=== PATIENT | male | born 1950 | race Hispanic/Latino ===

== ENCOUNTER 2017-02-06 06:35 | Day surgery (SDC) | payer MEDICARE, BC ==
[2015-03-31 06:34] VITALS: BMI 32.7
[2017-02-06] MEDS ORDERED: Bupivacaine 0.5% Inj(30mL) ONE (07:31)
[2017-02-06] MEDS ORDERED: Liquid Adhesive TOP ONE (07:31)
[2017-02-06] MEDS ORDERED: Neostigmine Methylsulfate 3mg/3ml Syringe IV ONE (07:32)
[2017-02-06] MEDS ORDERED: Propofol 10 mg/ml Inj (20 ML) ONE (07:32)
[2017-02-06] MEDS ORDERED: Rocuronium 10 mg/ml (5 ml) ONE (07:33)
[2017-02-06] MEDS ORDERED: Succinylcholine 200 mg/10 ml Inj IV ONE (07:33)
--- NOTE | 2017-02-06 08:48 | RAD ---
HISTORY: PRE-OP COMPARISON: No prior. FINDINGS: LUNGS: No active pulmonary disease. PLEURA: No significant pleural effusion identified, no pneumothorax apparent. CARDIOVASCULAR: Normal. OSSEOUS STRUCTURES: No significant abnormalities. VISUALIZED UPPER ABDOMEN: Normal. OTHER FINDINGS: None. IMPRESSION: No acute cardiopulmonary disease appreciated.
[2017-02-06] MEDS ORDERED: HYDROmorphone 0.5 mg/0.5 ml ISec IVP PRN (09:08)
--- NOTE | 2017-02-06 09:09 | PCM.SURG1 ---
Surgeon's Initial Post Op Note - Surgeon's Notes Surgeon: Martin Condemnation Engineer: Mayo PGY3; Ann Marie PGY1 Type of Anesthesia: General Endo Pre-Operative Diagnosis: Incarcerated Umbillica Hernia Operative Findings: Incarcerated umbilical hernia Post-Operative Diagnosis: Incarcerated Umbilical Hernia Operation Performed: Laparoscopic umbilical hernia repair with mesh Specimen/Specimens Removed: none Estimated Blood Loss: EBL {In ML}: 2 Blood Products Given: N/A Drains Used: No Drains Post-Op Condition: Good Date of Surgery/Procedure: 02/06/17 Time of Surgery/Procedure: 09:11
[2017-02-06] MEDS ORDERED: Levalbuterol 1.25 MG/3 ML Inhal Soln UD IH PRN (09:10)
[2017-02-06] MEDS ORDERED: Lactated Ringer's 1,000 ML IV SCH (09:15)
--- NOTE | 2017-02-06 11:14 | RAD ---
HISTORY: SOB COMPARISON: Portable chest 02/06/2017 7:06 a.m.. FINDINGS: LUNGS: Limited patchy density is question at the right costophrenic sulcus probably reflective of atelectasis of the pattern is nonspecific. No left sided airspace disease identified. PLEURA: No significant pleural effusion identified, no pneumothorax apparent. CARDIOVASCULAR: Normal. OSSEOUS STRUCTURES: No significant abnormalities. VISUALIZED UPPER ABDOMEN: Normal. OTHER FINDINGS: None. IMPRESSION: Trace airspace disease question on the right costophrenic sulcus with none on the left chest. Exam otherwise unremarkable.
--- NOTE | 2017-02-06 12:52 | OP ---
PROCEDURE DATE: 02/06/2017 PREOPERATIVE DIAGNOSIS: Incarcerated umbilical hernia. POSTOPERATIVE DIAGNOSIS: Incarcerated umbilical hernia. PROCEDURE PERFORMED: Laparoscopic repair of the incarcerated umbilical hernia with mesh. SURGEON: Braden Salazar MD ACTIVITY LEADER: Dr. Huber. TYPE OF ANESTHESIA: General endotracheal anesthesia. ANESTHESIA ADMINISTERED BY: Master Ramirez MD ESTIMATED BLOOD LOSS: Minimal. SPECIMEN: None. INDICATIONS: The patient is a 66-year-old male with history of umbilical hernia, which has been increasing in size causing him this pain and discomfort and it was incarcerated. The patient was examined and was noted to have a hernia. The patient was also noted to have liver cirrhosis and has multiple cardiac issues including hypertension and coronary artery disease. The patient received preoperative clearance from both medical and cardiac standpoint of view and was scheduled for the repair. DESCRIPTION OF PROCEDURE: The patient was brought to the operating room and placed on the operating table in a supine position. The patient was connected to the EKG, blood pressure, and pulse oximetry monitor. The patient then underwent general endotracheal anesthesia and was prepped and draped in the usual sterile fashion. First, a standard time-out procedure took place and everybody in the room agreed as to the patient's identity, diagnosis, and procedure to be performed. A surgical plan for this surgery and itself and postoperative course were also explained. First using lidocaine with Marcaine, the left subcostal margin area and midclavicular line was infiltrated and under direct visualization for the Visiport, access to the abdominal cavity was obtained. Once a 10-mm port was in place, the pneumoperitoneum was obtained and careful evaluation of abdominal cavity revealed the presence of some adhesions of the omentum to the left lower quadrant, abdominal wall as well as the area of the right lower quadrant. Both of these adhesions were highly vascularized as well as falciform ligament, which was highly vascularized, this is all probably secondary to the portal hypertension. The liver itself appeared to be cirrhotic and very uneven surface. I then proceeded with evaluation of the hernia, which appeared to contain omentum within it. Careful gentle teasing of the omentum pulled it out from the hernia and reduced it. Then, carefully detached to electrocautery and once this was done and no bleeding was noted, we then proceeded with hernia repair. A Veress needle was inserted into the abdominal cavity through the hernia defect. A 9-mm Parietex mesh incurred on a 3-0 Vicryl tie was placed into the abdominal cavity through the 10-mm port. This was pulled with closure needle into the defect by the attached string and the mesh itself was positioned centrally over the defect. Defect itself was about 2 cm and the mesh was 9 cm giving us about 3.5 to 4 cm of the margin. Now, the tackers were used in order to attach the mesh to the anterior abdominal wall, pushed 2 rows, one at the edge of the mesh and one at the midportion of the mesh. Once this was done, there was excellent hemostasis and there was no blood visible from the tackers in the abdominal wall. The pneumoperitoneum was now released after trocars were inspected and there was no bleeding noted. Once pneumoperitoneum was released, trocars were removed and the subcostal defect was closed using 0 Vicryl. The remaining wounds were now closed using 3-0 Vicryl and 4-0 Monocryl. Sterile Dermabond dressing was applied to all wounds. The patient tolerated the procedure well and there were no complications. The patient was awakened and transferred to the recovery room for further observation. Braden Salazar MD
[2017-02-06] MEDS ORDERED: Oxycodone/Acetaminophen 5/325 mg Tab PO PRN (12:56)
[2017-02-06 14:39] VITALS: BP 135/63; PULSE 83; RESP 18; TEMP 98.7; O2SAT 93
== END 2017-02-06 14:40 | disposition home or self-care (01) ==
LOC: SDS 06:35
PROVIDERS: ATTEND General Practice
DX: K42.0 Umbilical hernia with obstruction, without gangrene (principal); K74.60 Unspecified cirrhosis of liver; I10 Essential (primary) hypertension; I25.10 Atherosclerotic heart disease of native coronary artery without angina pectoris; E66.9 Obesity, unspecified; K76.6 Portal hypertension
CPT/HCPCS: 49653; 71010; C1781; J0330; J0690; J1170; J1885; J2001; J2405; J2704; J2710; J3010; J7120 ×2

== ENCOUNTER 2017-04-12 06:08 | Day surgery (SDC) | payer MEDICARE, BC ==
[2017-04-10 10:20] VITALS: BMI 34.0
[2017-04-12 07:11] LABS: BASO # 0.04 K/mm3 (0.0-2.0); BASO % 0.9 % (0.0-3.0); EOS # 0.3 (0.0-0.7); EOS % 6.3 % (1.5-5.0); GRAN # 2.82 (1.4-6.5); GRAN % 61.5 % (50.0-68.0); HEMOGLOBIN 11.6 g/dL (14.0-18.0); LYMPH # 0.9 (1.2-3.4); MEAN CELL VOLUME 90.4 fl (80.0-105.0); MEAN CORPUSCULAR HEMOGLOBIN 29.3 pg (25.0-35.0); MEAN CORPUSCULAR HGB CONC 32.4 g/dl (31.0-37.0); MEAN PLATELET VOLUME 10.9 fl (7.0-11.0); MONO # 0.5 (0.1-0.6); MONO % 11.3 % (1.0-6.0); RBC 3.96 10^6/uL (3.5-6.1); RED CELL DISTRIBUTION WIDTH 13.7 % (11.5-14.5); WHITE BLOOD COUNT 4.6 10^3/ul (4.5-11.0)
[2017-04-12 07:13] LABS: INR 1.25 (0.93-1.08); PARTIAL THROMBOPLASTIN TIME 34.2 Seconds (25.1-36.5); PROTHROMBIN TIME 14.4 SECONDS (9.4-12.5)
[2017-04-12] MEDS ORDERED: Lidocaine 2% Inj (20ml) ONE (10:43)
[2017-04-12] MEDS ORDERED: Phenylephrine 10 mg/ml Inj ONE (10:43)
[2017-04-12] MEDS ORDERED: HEPARIN SODIUM/NS 2,000 ML IV ONE (10:44)
[2017-04-12] MEDS ORDERED: Iodixanol 320 MG/ML 200 ML BOTTLE IV ONE (10:44)
[2017-04-12] MEDS ORDERED: Iohexol 350mgl/ml 50 ML ONE (10:44)
[2017-04-12] MEDS ORDERED: Iodixanol 320 MG/ML 100 ML BOTTLE IV ONE (10:44)
[2017-04-12] MEDS ORDERED: Midazolam 2 MG/2 ML VIAL ONE (11:07)
[2017-04-12] MEDS ORDERED: Sodium Chloride 0.9% 1,000 ML IV SCH (11:45)
[2017-04-12 13:00] VITALS: TEMP 98.2
[2017-04-12 13:25] VITALS: O2SAT 96
[2017-04-12 14:08] VITALS: BP 136/75; PULSE 68; RESP 20
--- NOTE | 2017-04-12 15:54 | CARD ---
APPROVED REPORT EKG Measurement Heart [id number] <Conclusion> Normal sinus rhythm Incomplete right bundle branch block Borderline ECG
--- NOTE | 2017-04-13 08:18 | CARDCATH ---
PROCEDURE DATE: 04/12/2017 PROCEDURES: 1. Selective left and right coronary angiography. 2. Left ventriculography. 3. Right femoral arteriography. 4. AngioSeal deployment. HISTORY: This is a 66-year-old man with known coronary artery disease, status post multivessel PCI and recent progressive exertional symptoms. A stress test was performed prior to anticipated knee surgery and anterolateral ischemia was present, repeat catheterization was advised. INDICATIONS: As above. FINDINGS: HEMODYNAMICS: The aortic pressure was 140/70 with left ventricular pressure of 140/30. CORONARY ANATOMY: 1. The left mainstem was moderately calcified and had a 60% distal stenosis. 2. The LAD also had moderately calcification in proximal segment and had a 40% ostial stenosis. The previously placed in proximal segment was patent. The distal vessel had mild diffuse irregularities as did the diagonal branches. 3. The left circumflex artery gave raise to 1 large obtuse marginal branch. The circumflex artery had a 90% instant stenosis in its proximal segment. This was followed by 60% stenosis as well. 4. The right coronary was large and dominant. The previously placed stents in the proximal mid segment were widely patent. The posterior descending artery had a 90% stenosis in its proximal segment. LEFT VENTRICULOGRAPHY: A hand injection was performed in the left ventricle revealing normal wall motion with an ejection fraction of 65%. There was no aortic valve gradient noted on catheter pullback. Mitral regurgitation was not assessed. RIGHT FEMORAL ARTERIOGRAPHY: The right femoral arteriogram revealed no evidence of significant disease and appropriate level for arterial puncture. The puncture site was then closed with deployment of AngioSeal device. CONCLUSIONS: 1. Significant distal left main and severe ostial left circumflex disease as well as moderate proximal LAD disease. Severe posterior descending artery disease. 2. Preserved LV systolic function. RECOMMENDATIONS: Given the above findings of left main and ostial circumflex disease, coronary bypass surgery is being recommended as preferred mode of revascularization. Continue risk factor control was advised. Jef Conrad MD cc:Juan Easley MD [facility]
== END 2017-04-12 15:00 | disposition home or self-care (01) ==
LOC: CATH 06:08
PROVIDERS: ATTEND Internal Medicine Cardiovascular Disease
DX: I25.10 Atherosclerotic heart disease of native coronary artery without angina pectoris (principal); I25.2 Old myocardial infarction; I10 Essential (primary) hypertension
CPT/HCPCS: 36415; 85025; 85610; 85730; 86850; 86900; 93005; 93458; 99152; C1760; C1769; C2629; J1644; J2250; J3010; J7040